=== PATIENT | male | born 1995 | race African-American/Black ===

== ENCOUNTER → 2016-12-26 | Outpatient (CLI) | payer OTHER ==
[2016-12-29 14:55] LABS: HCV GENOTYPE 1a (())
[2017-01-01 20:26] LABS: LF NECROINFLAMMAT ACT GRADE A3 (()); LF NECROINFLAMMAT ACT SCORE 0.69 (()); LF REFERENCE ID 1456119 (()); LIVER FIBROSIS ALPHA 2 MACRO 191 mg/dL (106-279); LIVER FIBROSIS APOLIPOPROTEIN 139 mg/dL (94-176)
== END ==
LOC: COL.LAB 12:03
DX: B18.2 Chronic viral hepatitis C (principal)
CPT/HCPCS: 87522

== ENCOUNTER → 2017-01-15 | Outpatient (CLI) | payer OTHER | LOC: COL.LAB 08:01 | DX: G40.309 Generalized idiopathic epilepsy and epileptic syndromes, not intractable, without status epilepticus (principal) ==

== ENCOUNTER → 2017-04-19 | Outpatient (CLI) | payer OTHER | LOC: COL.LAB 15:23 | DX: Z01.89 Encounter for other specified special examinations (principal) | CPT/HCPCS: 87522 ==

== ENCOUNTER → 2017-07-06 | Outpatient (CLI) | payer OTHER ==
[2017-07-06 17:56] LABS: BASO # 0.1 (0.0-0.2); BASO % 1.3 % (0.0-2.0); EOS # 0.3 (0.0-0.7); EOS % 3.5 % (0-4.0); GRAN # 4.2 (1.4-6.5); GRAN % 51.9 % (42.2-75.2); HEMATOCRIT 44.9 % (42.0-52.0); HEMOGLOBIN 15.4 g/dl (13.5-18.0); LYMPH # 2.9 (1.2-3.4); LYMPH % 36.5 % (20.0-51.0); MEAN CELL VOLUME 92 fl (80.0-100.0); MEAN CORPUSCULAR HEMOGLOBIN 32 pg (27.0-31.0); MEAN CORPUSCULAR HGB CONC 34 g/dl (33.0-37.0); MEAN PLATELET VOLUME 10.2 fl (7.4-10.4); MONO # 0.5 (0.1-0.6); MONO % 6.4 % (1.7-9.3); PLATELET COUNT 248 K/mm3 (130-400); RED BLOOD COUNT 4.88 M/mm3 (4.20-5.60); REDCELL DISTRIBUTION WIDTH-CV 12.1 % (11.5-14.5)
== END ==
LOC: COL.LAB 15:31
DX: B18.2 Chronic viral hepatitis C (principal)